=== PATIENT | male | born 1935 | race Caucasian/White ===

== ENCOUNTER → 2017-05-17 | Outpatient (CLI) | payer MEDICARE, OTHER ==
[~2017-05-17] MED LIST: ASP325T PO; ENAL1TAB19 PO
== END ==
DX: N28.1 Cyst of kidney, acquired (principal)

== ENCOUNTER → 2019-06-10 | Outpatient (CLI) | payer MEDICARE, OTHER ==
[~2019-06-10] MED LIST changes: +HOLD METFORMIN - RECEIVED CONTRAST 20 ML VIAL IV SCH; +IOHEXOL 350 MG/ML 100 ML (OMNIPAQUE 350) VIAL IV ONE; +NS 100 ML (IVPB) BAG IV ONE
[2019-06-10 11:21] LABS: BUN/CREATININE RATIO 18; CREATININE SERUM 1.11 MG/DL (0.60-1.30); GFR ESTIMATED > 60
--- NOTE | 2019-06-10 12:05 | Diagnostic Imaging Report ---
PROCEDURE: CT angiography of the chest with contrast. TECHNIQUE: Multiple contiguous axial images were obtained through the chest after uneventful bolus administration of intravenous contrast. 2D reconstructed CTA MIP acquisitions were also performed. Auto Exposure Controls were utilized during the CT exam to meet ALARA standards for radiation dose reduction. INDICATION: Shortness of breath. FINDINGS: No comparison available. There is no pulmonary embolism. Heart size is normal. No pericardial effusion. Aorta is normal in caliber. No axillary, supraclavicular or mediastinal lymphadenopathy. Limited views of the upper abdomen are unremarkable. Lungs are clear without edema or pneumonia. No pleural effusion or pneumothorax. There are no suspicious osseous lesions. There is a mild compression fracture of T12. Impression: 1. No pulmonary embolism or acute abnormality in the chest. 2. Age indeterminate mild T12 compression fracture. Dictated by: Dictated on workstation # [id number]
== END ==
LOC: RAD 10:16
PROVIDERS: ATTEND Internal Medicine Critical Care Medicine
DX: M48.54XA Collapsed vertebra, not elsewhere classified, thoracic region, initial encounter for fracture (principal); J98.11 Atelectasis
CPT/HCPCS: 36415; 71275; 82565; 84520

== ENCOUNTER → 2019-07-30 | Outpatient (CLI) | payer MEDICARE ==
[~2019-07-30] MED LIST changes: -HOLD METFORMIN - RECEIVED CONTRAST 20 ML VIAL IV SCH; -IOHEXOL 350 MG/ML 100 ML (OMNIPAQUE 350) VIAL IV ONE; -NS 100 ML (IVPB) BAG IV ONE
--- NOTE | 2019-07-30 15:47 | Diagnostic Imaging Report ---
PROCEDURE: US Renal Bilateral. TECHNIQUE: Multiple real-time grayscale images were obtained over the kidneys in various projections bilaterally. INDICATION: Renal cysts, follow-up. Correlation is made with prior renal ultrasound from 05/17/2017. FINDINGS: Right kidney measures 9.4 x 5.1 x 4.8 cm and the left kidney measures 10.2 x 5.5 x 5.0 cm. Cortical thickness and echogenicity is normal. There are no calculi. No hydronephrosis is seen. Left kidney does contain a cyst in the midportion measuring 12 mm x 7 mm x 9 mm. No cyst was identified on prior exam. Right kidney contains three cysts. Cyst in the upper pole measures 11 mm 11 mm x 12 mm. Additional cyst in the upper pole measures approximately 12 mm x 12 mm x 16 mm. A cyst in the mid portion of the right kidney measures 12 mm x 11 mm x 12 mm. Urinary bladder demonstrates bilateral ureteral jets. IMPRESSION: Bilateral renal cysts. No significant change has occurred since examination from 05/15/2017 although there appear to be two additional cysts now present, one in the right kidney and one in the left kidney since prior exam. No definite solid renal mass is identified. There is no hydronephrosis. Continued follow-up could be performed to confirm stability. Dictated by: Dictated on workstation # [id number]
== END ==
LOC: RAD 12:45
PROVIDERS: ATTEND Urology
DX: N28.1 Cyst of kidney, acquired (principal)
CPT/HCPCS: 76770